=== PATIENT | female | born 1985 | race Caucasian/White ===

== ENCOUNTER 2017-04-29 13:46 | Emergency (ER) | payer OTHER, BC ==
[~2017-04-29] VITALS: Ht 162.6 cm; Wt 65.8 kg
[~2017-04-29 13:46] MED LIST: ATR20T PO; ATRV10T PO; DOCU100C37 PO; FAMO20TA3 PO; HUMALOG R; HYDR-3812 PO; HYDR25CA5 PO; IBUP-1773 PO; INSHRV SC; INSU100C SQ; INSU100V5 SQ; METR500T PO; NAPR-243 PO; OMG1KC PO; ONDA-42 SL; PAMI30VI8 SQ; PNV91TAB3 PO; QUIN10TA PO; SENN1TAB PO; SIMV40TA4 PO; TRAM50TA2 PO; TRM50T PO
[2017-04-29] MEDS ORDERED: KETOROLAC 30 MG/ML VIAL ONE (14:05)
[2017-04-29] MEDS ORDERED: ONDANSETRON 4 MG/2 ML (SDV) Z0FRAN ONE (14:05)
[2017-04-29] MEDS ORDERED: NS IV 1000 ML 1,000 ML ONE (14:05)
[2017-04-29 14:10] LABS: BASOPHILS % (AUTO) 0 % (0-10); EOSINOPHILS % (AUTO) 0 % (0-10); LYMPHOCYTES # (AUTO) 1.4 X 10^3 (1.0-4.0); LYMPHOCYTES % (AUTO) 7 % (12-44); MEAN CORPUSCULAR HEMOGLOBIN 27 PG (25-34); MEAN CORPUSCULAR HGB CONC 34 G/DL (32-36); MEAN CORPUSCULAR VOLUME 80 FL (80-99); MEAN PLATELET VOLUME 9.6 FL (7.4-10.4); MONOCYTES # (AUTO) 1.3 X 10^3 (0.0-1.0); MONOCYTES % (AUTO) 6 % (0-12); NEUTROPHILS # (AUTO) 17.6 X 10^3 (1.8-7.8); NEUTROPHILS % (AUTO) 87 % (42-75); PLATELET COUNT 438 10^3/uL (130-400); RED BLOOD COUNT 4.43 10^6/uL (4.35-5.85); RED CELL DISTRIBUTION WIDTH 15.4 % (10.0-14.5); WHITE BLOOD COUNT 20.3 10^3/uL (4.3-11.0)
--- NOTE | 2017-04-29 14:14 | ED GI ---
General Stated Complaint: TYPE 1 DIABETIC, BODY ACHES, VOMITING History of Present Illness Time Seen By Provider: 13:55 Initial Comments 32-year-old female reports nausea and vomiting since last evening. She also has arthralgias and myalgias. She is a type I diabetic and uses an insulin pump. Her blood sugar prior to arrival was 285, her pump administered 3 units of NovoLog regular. She did receive a flu shot this year. She denies any household family members having similar symptoms. She has had very poor intake today secondary to the nausea and vomiting. Her last episode of vomiting was 0900 today. She denies specific abdominal pain, generalized from vomiting. She took a hydrocodone yesterday evening for the body aches. She's had no analgesics today. Timing/Duration: 12-24 Hours Severity/Quality: Mild Location: Generalized Abdomen Radiation: No Radiation Modifying Factors: Improves With Resting Associated Symptoms: Fever/Chills, Fatigue, Nausea/Vomiting, Weakness Allergies and Home Medications Allergies Coded Allergies: No Known Drug Allergies (Unverified , 01/17/10) Home Medications Insulin Lispro 100 Unit/1 Ml Cartridge, SQ per insulin pump, (Reported) Ondansetron 8 Mg Tab.rapdis, 8 MG PO Q8H, #6 Ref 0 Prescribed by: KENDRICK MOTTA on 04/29/17 1638 Review of Systems Constitutional: no symptoms reported, see HPI Respiratory: No Symptoms Reported, See HPI, Denies Cough, Denies Shortness of Air Gastrointestinal: See HPI, Nausea, Poor Appetite, Poor Fluid Intake, Vomiting Genitourinary: No Symptoms Reported, See HPI Musculoskeletal: see HPI, joint pain, muscle pain All Other Systems Reviewed Negative Unless Noted: Yes Past Kffvkqn-Kkvwmf-Pwbegx Hx Patient Social History Recent Foreign Travel: No Contact w/Someone Who Travel: No Recent Hopitalizations: No Immunizations Up To Date Tetanus Booster (TDap): More than 5yrs Date of Pneumonia Vaccine: Feb 12, 2010 Seasonal Allergies Seasonal Allergies: No Reproductive System : No (IUD) Hx Reproductive Disorders: 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 Endocrine History of Endocrine Disorders: Yes Endocrine Disorders: Diabetes, Insulin dep Reviewed Nursing Assessment Reviewed/Agree w Nursing PMH: Yes Family Medical History Significant Family History: No Pertinent Family Hx Family Medial History: Completed stroke grandparent Hypertension 19 MOTHER Physical Exam Vital Signs VS - Last 72 Hours, by Label 04/29/17 04/29/17 13:55 16:48 Temp 98.9 98.1 Pulse 106 88 Resp 28 24 B/P (MAP) 122/56 (78) Pulse Ox 99 99 Capillary Refill : General Appearance: WD/WN, no apparent distress HEENT: PERRL/EOMI, normal ENT inspection, TMs normal, pharynx normal, other ( oral mucosa pale and dry) Neck: non-tender, full range of motion Respiratory: chest non-tender, lungs clear, normal breath sounds Cardiovascular: normal peripheral pulses, regular rate, rhythm Gastrointestinal: normal bowel sounds, soft, No guarding, No rebound, No tenderness, other (negative Macdonald, McBurney's, psoas) Extremities: normal range of motion, non-tender, normal inspection, no pedal edema, normal capillary refill Back: normal inspection, no CVA tenderness, no vertebral tenderness Neurologic/Psychiatric: no motor/sensory deficits, alert, normal mood/affect, oriented x 3 Skin: normal color, warm/dry Lymphatic: no adenopathy Focused Exam Evaluation Lactate Level Laboratory Tests 04/29/17 14:35: Lactic Acid Level 1.33 Lactic Acid Level Laboratory Tests Test 04/29/17 14:35 Lactic Acid Level 1.33 MMOL/L (0.50-2.00) Progress/Results/Core Measures Results/Orders Lab Results Laboratory Tests Test 04/29/17 14:05 04/29/17 14:22 04/29/17 14:35 04/29/17 15:00 Range/Units White Blood Count 20.3 H 4.3-11.0 10^3/uL Red Blood Count 4.43 4.35-5.85 10^6/uL Hemoglobin 11.9 11.5-16.0 G/DL Hematocrit 36 35-52 % Mean Corpuscular Volume 80 80-99 FL Mean Corpuscular Hemoglobin 27 25-34 PG Mean Corpuscular Hemoglobin Concent 34 32-36 G/DL Red Cell Distribution Width 15.4 H 10.0-14.5 % Platelet Count 438 H 130-400 10^3/uL Mean Platelet Volume 9.6 7.4-10.4 FL Neutrophils (%) (Auto) 87 H 42-75 % Lymphocytes (%) (Auto) 7 L 12-44 % Monocytes (%) (Auto) 6 0-12 % Eosinophils (%) (Auto) 0 0-10 % Basophils (%) (Auto) 0 0-10 % Neutrophils # (Auto) 17.6 H 1.8-7.8 X 10^3 Lymphocytes # (Auto) 1.4 1.0-4.0 X 10^3 Monocytes # (Auto) 1.3 H 0.0-1.0 X 10^3 Eosinophils # (Auto) 0.0 0.0-0.3 10^3/uL Basophils # (Auto) 0.0 0.0-0.1 10^3/uL Neutrophils % (Manual) 90 % Lymphocytes % (Manual) 9 % Monocytes % (Manual) 1 % Toxic Granulation 3+ Dohle Bodies SLIGHT Blood Morphology Comment NORMAL Sodium Level 135 135-145 MMOL/L Potassium Level 4.6 3.6-5.0 MMOL/L Chloride Level 102 98-107 MMOL/L Carbon Dioxide Level 12 L 21-32 MMOL/L Anion Gap 21 H 5-14 MMOL/L Blood Urea Nitrogen 21 H 7-18 MG/DL Creatinine 1.25 0.60-1.30 MG/DL Estimat Glomerular Filtration Rate 50 BUN/Creatinine Ratio 17 Glucose Level 415 *H 70-105 MG/DL Calcium Level 9.7 8.5-10.1 MG/DL Total Bilirubin 1.2 H 0.1-1.0 MG/DL Aspartate Amino Transf (AST/SGOT) 13 5-34 U/L Alanine Aminotransferase (ALT/SGPT) 15 0-55 U/L Alkaline Phosphatase 74 40-136 U/L C-Reactive Protein High Sensitivity 1.19 H 0.00-0.50 MG/DL Total Protein 8.0 6.4-8.2 GM/DL Albumin 4.7 H 3.2-4.5 GM/DL Glucometer 349 H 70-110 MG/DL Lactic Acid Level 1.33 0.50-2.00 MMOL/L Urine Color YELLOW Urine Clarity CLEAR Urine pH 5 5-9 Urine Specific [place] 1.025 H 1.016-1.022 Urine Protein 1+ H NEGATIVE Urine Glucose (UA) 4+ H NEGATIVE Urine Ketones 4+ H NEGATIVE Urine Nitrite NEGATIVE NEGATIVE Urine Bilirubin NEGATIVE NEGATIVE Urine Urobilinogen NORMAL NORMAL MG/DL Urine Leukocyte Esterase NEGATIVE NEGATIVE Urine RBC (Auto) 1+ H NEGATIVE Urine RBC 0-2 /HPF Urine WBC 0-2 /HPF Urine Squamous Epithelial Cells 10-25 H /HPF Urine Crystals NONE /LPF Urine Bacteria TRACE /HPF Urine Casts NONE /LPF Urine Mucus NEGATIVE /LPF Urine Yeast FEW H /HPF Urine Culture Indicated NO Urine Test NEGATIVE NEGATIVE Test 04/29/17 15:05 04/29/17 15:58 Range/Units Glucometer 332 H 281 H 70-110 MG/DL Micro Results Microbiology 04/29/17 Influenza Types A,B Antigen (JUANITA) - Final, Complete My Orders Orders - KENDRICK MOTTA Accucheck Stat ONCE (04/29/17 13:51) Cbc With Automated Diff (04/29/17 13:51) Comprehensive Metabolic Panel (04/29/17 13:51) Hs C Reactive Protein (04/29/17 13:51) Ua Culture If Indicated (04/29/17 13:51) Influenza A And B Antigens (04/29/17 13:51) Saline Lock/Iv-Start (04/29/17 13:51) Ondansetron Injection (Zofran Injectio (04/29/17 14:05) Ketorolac Injection (Toradol Injection) (04/29/17 14:05) Ns Iv 1000 Ml (Sodium Chloride 0.9%) (04/29/17 14:05) Manual Differential (04/29/17 14:05) Ketorolac Injection (Toradol Injection) (04/29/17 14:15) Blood Culture (04/29/17 14:31) Lactic Acid Analyzer (04/29/17 14:31) Insulin (Regular) Human (Humulin R (Per (04/29/17 14:29) Insulin (Regular) Human (Humulin R (Per (04/29/17 14:37) Insulin (Regular) Human (Humulin R (Per (04/29/17 14:39) Saline Lock/Iv-Start (04/29/17 14:52) Ns Iv 1000 Ml (Sodium Chloride 0.9%) (04/29/17 14:52) Accucheck Stat ONCE (04/29/17 15:01) Acetaminophen Tablet/Caplet (Tylenol T (04/29/17 15:01) Hcg,Qualitative Urine (04/29/17 15:07) Clear Liquid (04/29/17 Lunch) Ns Iv 1000 Ml (Sodium Chloride 0.9%) (04/29/17 16:00) Accucheck Stat ONCE (04/29/17 16:02) Medications Given in ED Current Medications Medications Dose Ordered Sig/Karl Route Start Time Stop Time Status Last Admin Dose Admin Insulin Human Regular 1 unit STK-MED ONCE .ROUTE 04/29/17 14:29 04/29/17 14:31 DC 04/29/17 14:35 1 UNIT Ketorolac Tromethamine 30 mg STK-MED ONCE .ROUTE 04/29/17 14:05 04/29/17 14:07 DC 04/29/17 14:13 30 MG Ondansetron HCl 4 mg STK-MED ONCE .ROUTE 04/29/17 14:05 04/29/17 14:07 DC 04/29/17 14:14 4 MG Sodium Chloride 1,000 ml @ 0 mls/hr Q0M ONCE IV 04/29/17 14:52 04/29/17 14:53 DC 04/29/17 15:00 1,000 MLS/HR Sodium Chloride 1,000 ml @ ud STK-MED ONCE .ROUTE 04/29/17 14:05 04/29/17 14:07 DC 04/29/17 14:13 1,000 MLS/HR Vital Signs/I&O Vital Sign - Last 12Hours 04/29/17 04/29/17 13:55 16:48 Temp 98.9 98.1 Pulse 106 88 Resp 28 24 B/P (MAP) 122/56 (78) Pulse Ox 99 99 Progress Note : Time: 13:55 Progress Note Initial evaluation completed, recommended labs, flu swab, normal saline 1 L IV, Zofran 4 mg IV, Toradol 30 mg IV. Will reevaluate. 1430 Glucose 415, Regular Insulin 5 units IV. Will recheck at 1500. 1500 Temp 100.4; WBC 20.3, lactic acid 1.33, C-reactive protein 1.19. Will administer 2nd liter of IV NS. UA obtained. Tylenol 650 mg by mouth. 1505 Accucheck 332, Regular Insulin 10 units IV 1530 patient reports to be feeling better, no nausea or vomiting. Patient reports she is feeling hungry. Third liter of IV fluid started, normal saline. We'll attempt chicken broth and Jell-O. Oral mucosa pink and moist. 1600 Accu-Chek 281. 1630 Temp 98.8, discussed discharge planning and reviewed return precautions. Patient will continue to monitor her glucose at home and adjust insulin demands as needed. All questions answered. Departure Impression Impression: Primary Impression: Nausea and vomiting Qualified Codes: G43.A1 - Cyclical vomiting, intractable Additional Impressions: Dehydration Hyperglycemia Insulin dependent diabetes mellitus Disposition: HOME, SELF-CARE Condition: Improved Departure-Patient Inst. Decision time for Depature: 16:30 Referrals: [facility] [place]) Primary Care Physician Patient Instructions: Dehydration, Adult (DC), Nausea and Vomiting, Adult (DC) Add. Discharge Instructions: Continue to take clear liquids for the next 4 hours, if no further nausea or vomiting may progress to bland diet. Continue to check glucose every 2-3 hours and adjust insulin as needed. Use Zofran for nausea or vomiting. Return to emergency department if symptoms are not improving, recurrent nausea and vomiting, dizziness or weakness from dehydration, fever greater than 101 not relieved with Tylenol or ibuprofen, or new problems. Follow-up with your primary care provider early next week. All discharge instructions reviewed with patient and/or family. Voiced understanding. Scripts Ondansetron (Zofran Odt) 8 Mg Tab.rapdis 8 MG PO Q8H, #6 TAB 0 Refills Prov: KENDRICK MOTTA 04/29/17 Copy Copies To 1: JANICE CHAKRABORTY MD, AMY ARNP Apr 29, 2017 14:14
[2017-04-29] MEDS ORDERED: KETOROLAC 30 MG/ML VIAL IVP STA (14:15)
[2017-04-29 14:27] LABS: ALBUMIN 4.7 GM/DL (3.2-4.5); BILIRUBIN,TOTAL 1.2 MG/DL (0.1-1.0); CALCIUM 9.7 MG/DL (8.5-10.1); CREATININE SERUM 1.25 MG/DL (0.60-1.30); LYMPHOCYTES % (MANUAL) 9 %; NEUTROPHILS % (MANUAL) 90 %; POTASSIUM 4.6 MMOL/L (3.6-5.0); hs C REACTIVE PROTEIN 1.19 MG/DL (0.00-0.50)
[2017-04-29] MEDS ORDERED: inSUlin (REGULAR) HUMAN 1 UNIT/0.01 ML (CHARGE PER UNIT) ONE (14:29)
[2017-04-29] MEDS ORDERED: inSUlin (REGULAR) HUMAN 1 UNIT/0.01 ML (CHARGE PER UNIT) IV STA ×2 (14:37→14:39)
[2017-04-29] MEDS ORDERED: NS IV 1000 ML 1,000 ML IV ONE (14:52)
[2017-04-29] MEDS ORDERED: ACETAMINOPHEN 325 MG TABLET/CAPLET (TYLENOL) PO STA (15:01)
[2017-04-29 15:11] LABS: BILIRUBIN,URINE NEGATIVE (NEGATIVE); KETONES,URINE 4+ (NEGATIVE); LEUKOCYTE ESTERASE ,URINE NEGATIVE (NEGATIVE); NITRITE,URINE NEGATIVE (NEGATIVE); PH,URINE 5 (5-9); PROTEIN,URINE 1+ (NEGATIVE); UROBILINOGEN,URINE NORMAL (NORMAL)
[2017-04-29 15:20] LABS: WBC,URINE 0-2 /HPF; YEAST,URINE FEW /HPF
[2017-04-29] MEDS ORDERED: NS IV 1000 ML 1,000 ML IV SCH (16:00)
[2017-04-29] MEDS ORDERED: ONDA8TAB9 PO (16:38)
[2017-04-29 16:48] VITALS: BP 122/56
== END 2017-04-29 16:48 | disposition home or self-care (01) ==
LOC: EDUNIT# 13:46 → ER 13:49
DX: R11.2 Nausea with vomiting, unspecified (principal); E86.0 Dehydration; E11.65 Type 2 diabetes mellitus with hyperglycemia; Z79.4 Long term (current) use of insulin; Z97.5 Presence of (intrauterine) contraceptive device
CPT/HCPCS: 36415; 80053; 81000; 82962; 83605; 84703; 85007; 85027; 86141; 87040; 87804

== ENCOUNTER 2019-07-02 05:50 | Emergency (ER) | payer BC ==
[~2019-07-02] VITALS: Ht 165 cm; Wt 68.6 kg
[~2019-07-02 05:50] MED LIST changes: +ACHD5005 PO; -HYDR-3812 PO; +ONDA8TAB9 PO; -TRAM50TA2 PO
[2019-07-02] MEDS ORDERED: NS IV 1000 ML 1,000 ML IV SCH (06:06)
[2019-07-02] MEDS ORDERED: ONDANSETRON 4 MG/2 ML (SDV) Z0FRAN IVP ONE (06:15)
--- NOTE | 2019-07-02 06:16 | ED GI ---
General Stated Complaint: COUGHING,VOMITING,BODY ACHE,POSS FEVER Source of Information: Patient Exam Limitations: No Limitations History of Present Illness Date Seen by Provider: Jul 02, 2019 Time Seen by Provider: 05:57 Initial Comments Patient arrives by private conveyance from home with chief complaint for the past 4 days she's had nausea vomiting diarrhea cough bodyaches fevers and chills. She thinks she has influenza. She is a type I diabetic and her fasting blood sugar this morning was 80. She has no other significant medical history. She has a history of times one. She has not seen anybody for this particular illness yet. No history of lung disease. No rash, headache, numbness. Allergies and Home Medications Allergies Coded Allergies: No Known Drug Allergies (Unverified , 01/17/10) Home Medications Insulin Lispro 100 Unit/1 Ml Cartridge, SQ per insulin pump, (Reported) Ondansetron 8 Mg Tab.rapdis, 8 MG PO Q8H Prescribed by: KENDRICK MOTTA on 04/29/17 1638 Ondansetron 8 Mg Tab.rapdis, 8 MG PO Q6H PRN for NAUSEA/VOMITING-1ST LINE Prescribed by: RODOLFO SYKES on 07/02/19 0819 Promethazine HCl 25 Mg Tablet, 25 MG PO Q6H PRN for NAUSEA/VOMITING-2ND LINE Prescribed by: RODOLFO SYKES on 07/02/19 0819 Patient Home Medication List Home Medication List Reviewed: Yes Review of Systems Review of Systems Constitutional: chills, fever, malaise EENTM: No Blurred Vision, No Double Vision Respiratory: Cough; Denies Shortness of Air, Denies Wheezing Cardiovascular: Denies Chest Pain, Denies Edema Gastrointestinal: Denies Abdomen Distended, Denies Abdominal Pain, Denies Constipated; Diarrhea, Nausea; Denies Poor Appetite; Vomiting Genitourinary: Denies Burning, Denies Discharge Musculoskeletal: No back pain, No joint pain Skin: No pruritus, No rash Psychiatric/Neurological: Denies Headache, Denies Numbness, Denies Paresthesia All Other Systems Reviewed Negative Unless Noted: Yes Past Pzrvicx-Sovxhn-Wfqmod Hx Patient Social History Alcohol Use: Denies Use Recreational Drug Use: No Smoking Status: Never a Smoker Recent Foreign Travel: No Contact w/Someone Who Travel: No Recent Hopitalizations: No Immunizations Up To Date Tetanus Booster (TDap): More than 5yrs Date of Pneumonia Vaccine: Feb 12, 2010 Date of Influenza Vaccine: Feb 12, 2017 Seasonal Allergies Seasonal Allergies: No Past Medical History Surgeries: Yes Section Respiratory: No Cardiac: No Neurological: Yes (2010 had a seizure once when blood sugar dropped quickly) 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 0.0oz. [id number]; 31.8 BMI Method:Stated General Appearance: WD/WN, mild distress HEENT: PERRL/EOMI, TMs normal, pharynx normal Neck: non-tender, supple, normal inspection Respiratory: lungs clear, normal breath sounds, no respiratory distress, no accessory muscle use Cardiovascular: normal peripheral pulses, regular rate, rhythm, no edema Peripheral Pulses: 2+ Radial Pulses (R), 2+ Radial Pulses (L) Gastrointestinal: normal bowel sounds, soft; No rebound; tenderness (mild, all 4 quadrants without mesenteric signs) Extremities: normal range of motion, non-tender, normal inspection, normal capillary refill Neurologic/Psychiatric: alert, oriented x 3 Skin: normal color, warm/dry Lymphatic: no adenopathy Progress/Results/Core Measures Results/Orders Lab Results Laboratory Tests Test 07/02/19 06:11 07/02/19 06:15 07/02/19 07:32 Range/Units Glucometer 130 H 70-110 MG/DL White Blood Count 15.5 H 4.3-11.0 10^3/uL Red Blood Count 4.36 4.35-5.85 10^6/uL Hemoglobin 11.9 11.5-16.0 G/DL Hematocrit 36 35-52 % Mean Corpuscular Volume 82 80-99 FL Mean Corpuscular Hemoglobin 27 25-34 PG Mean Corpuscular Hemoglobin Concent 33 32-36 G/DL Red Cell Distribution Width 14.8 H 10.0-14.5 % Platelet Count 280 130-400 10^3/uL Mean Platelet Volume 9.5 7.4-10.4 FL Neutrophils (%) (Auto) 83 H 42-75 % Lymphocytes (%) (Auto) 10 L 12-44 % Monocytes (%) (Auto) 7 0-12 % Eosinophils (%) (Auto) 0 0-10 % Basophils (%) (Auto) 0 0-10 % Neutrophils # (Auto) 12.9 H 1.8-7.8 X 10^3 Lymphocytes # (Auto) 1.5 1.0-4.0 X 10^3 Monocytes # (Auto) 1.1 H 0.0-1.0 X 10^3 Eosinophils # (Auto) 0.0 0.0-0.3 10^3/uL Basophils # (Auto) 0.0 0.0-0.1 10^3/uL Neutrophils % (Manual) 79 % Lymphocytes % (Manual) 9 % Monocytes % (Manual) 6 % Eosinophils % (Manual) 1 % Band Neutrophils 5 % Polychromasia SLIGHT Sodium Level 139 135-145 MMOL/L Potassium Level 3.1 L 3.6-5.0 MMOL/L Chloride Level 103 98-107 MMOL/L Carbon Dioxide Level 22 21-32 MMOL/L Anion Gap 14 5-14 MMOL/L Blood Urea Nitrogen 14 7-18 MG/DL Creatinine 0.84 0.60-1.30 MG/DL Estimat Glomerular Filtration Rate > 60 BUN/Creatinine Ratio 17 Glucose Level 137 H 70-105 MG/DL Calcium Level 9.0 8.5-10.1 MG/DL Corrected Calcium 8.8 8.5-10.1 MG/DL Total Bilirubin 0.4 0.1-1.0 MG/DL Aspartate Amino Transf (AST/SGOT) 18 5-34 U/L Alanine Aminotransferase (ALT/SGPT) 15 0-55 U/L Alkaline Phosphatase 55 40-136 U/L Total Protein 7.2 6.4-8.2 GM/DL Albumin 4.3 3.2-4.5 GM/DL Serum Test, Qualitative NEGATIVE NEGATIVE Urine Color DARK YELLOW Urine Clarity SL CLOUDY Urine pH 6.0 5-9 Urine Specific [place] >=1.030 1.016-1.022 Urine Protein 1+ H NEGATIVE Urine Glucose (UA) NEGATIVE NEGATIVE Urine Ketones 3+ H NEGATIVE Urine Nitrite NEGATIVE NEGATIVE Urine Bilirubin 1+ H NEGATIVE Urine Urobilinogen 0.2 < = 1.0 MG/DL Urine Leukocyte Esterase 1+ H NEGATIVE Urine RBC (Auto) 2+ H NEGATIVE Urine RBC 5-10 H /HPF Urine WBC 2-5 /HPF Urine Squamous Epithelial Cells 10-25 H /HPF Urine Crystals NONE /LPF Urine Bacteria FEW H /HPF Urine Casts NONE /LPF Urine Mucus SMALL H /LPF Urine Culture Indicated YES Micro Results Microbiology 07/02/19 Influenza Types A,B Antigen (JUANITA) - Final, Complete My Orders Orders - RODOLFO SYKES Influenza A And B Antigens (07/02/19 05:54) Ua Culture If Indicated (07/02/19 06:06) Accucheck Stat ONCE (07/02/19 06:06) Cbc With Automated Diff (07/02/19 06:06) Comprehensive Metabolic Panel (07/02/19 06:06) Ed Iv/Invasive Line Start (07/02/19 06:06) Ns Iv 1000 Ml (Sodium Chloride 0.9%) (07/02/19 06:06) Ondansetron Injection (Zofran Injectio (07/02/19 06:15) Manual Differential (07/02/19 06:15) Promethazine Injection (Phenergan Injec (07/02/19 06:45) Hcg,Qualitative Serum (07/02/19 06:36) Urine Culture (07/02/19 07:32) Medications Given in ED Current Medications Medications Dose Ordered Sig/Karl Route Start Time Stop Time Status Last Admin Dose Admin Ondansetron HCl 8 mg ONCE ONCE IVP 07/02/19 06:15 07/02/19 06:16 DC 07/02/19 06:24 8 MG Promethazine HCl 25 mg ONCE ONCE IVP 07/02/19 06:45 07/02/19 06:46 DC 07/02/19 06:42 25 MG Vital Signs/I&O 07/02/19 07/02/19 06:03 06:03 Temp 37.6 Pulse 81 Resp 20 B/P (MAP) 129/98 (108) O2 Delivery Room Air Room Air Progress Progress Note #1: Time: 06:18 Progress Note Influenza swab. Accu-Chek was 130. Plan on obtaining some labs and urine given her history of type 1 diabetes. Tylenol and/or Toradol for her borderline fever and body aches associated her nausea under control and CMP. 1 L of saline to start. Progress Note #2: Time: 07:00 Progress Note After Zofran and a dose of Phenergan was given. Her nausea is under control so we gave her some ice chips and will attempt to get a urinalysis to rule out UTI. Viral gastroenteritis is most likely. She has a benign abdominal exam on reexamination. Nontender abdomen without mesenteric signs. Aseptic vital signs. Her potassium is a little low after all her vomiting as expected. We'll going to encourage her to fix it with her diet. Her nausea under control. Her marginal elevated white count is also expected nausea and vomiting. Departure Impression Primary Impression: Gastroenteritis and colitis, viral Disposition: HOME, SELF-CARE Condition: Stable Departure-Patient Inst. Decision time for Depature: 08:17 Referrals: SAI MARIE MD (PCP/Family) Primary Care Physician Patient Instructions: Viral Gastroenteritis, Adult (DC) Add. Discharge Instructions: Drink plenty of fluids. Sports drinks are recommended. Zofran 1 tablet every 6 hours as needed for nausea or vomiting. Phenergan 1 tablet every 6 hours as needed for nausea or vomiting not corrected by Zofran. Tylenol 1000 mg every 8 hours as needed for pain or fever. Ibuprofen 800 mg every 8 hours as needed for pain or fever. If your symptoms persist for more than 5-7 days or you're having intractable pain or nausea then you need to return to the nearest ER. Otherwise follow-up w la Marie as necessary. Scripts Promethazine HCl (Promethazine Tablet) 25 Mg Tablet 25 MG PO Q6H PRN for NAUSEA/VOMITING-2ND LINE, #10 TAB 0 Refills Prov: RODOLFO SYKES 07/02/19 Work/School Note: Work Release Form Date Seen in the Emergency Department: Jul 02, 2019 Return to Work: Jul 03, 2019 Restrictions: No Restrictions, Return-No Fever (24hrs) RODOLFO SYKES Jul 02, 2019 06:16
[2019-07-02 06:27] LABS: BASOPHILS % (AUTO) 0 % (0-10); EOSINOPHILS % (AUTO) 0 % (0-10); HEMATOCRIT 36 % (35-52); HEMOGLOBIN 11.9 G/DL (11.5-16.0); LYMPHOCYTES # (AUTO) 1.5 X 10^3 (1.0-4.0); LYMPHOCYTES % (AUTO) 10 % (12-44); MEAN CORPUSCULAR HEMOGLOBIN 27 PG (25-34); MEAN CORPUSCULAR HGB CONC 33 G/DL (32-36); MEAN CORPUSCULAR VOLUME 82 FL (80-99); MEAN PLATELET VOLUME 9.5 FL (7.4-10.4); MONOCYTES # (AUTO) 1.1 X 10^3 (0.0-1.0); MONOCYTES % (AUTO) 7 % (0-12); NEUTROPHILS # (AUTO) 12.9 X 10^3 (1.8-7.8); NEUTROPHILS % (AUTO) 83 % (42-75); PLATELET COUNT 280 10^3/uL (130-400); RED CELL DISTRIBUTION WIDTH 14.8 % (10.0-14.5); WHITE BLOOD COUNT 15.5 10^3/uL (4.3-11.0)
[2019-07-02 06:44] LABS: ALANINE AMINOTRANSFERASE 15 U/L (0-55); ALBUMIN 4.3 GM/DL (3.2-4.5); ALKALINE PHOSPHATASE 55 U/L (40-136); BILIRUBIN,TOTAL 0.4 MG/DL (0.1-1.0); BUN/CREATININE RATIO 17; CARBON DIOXIDE 22 MMOL/L (21-32); CHLORIDE 103 MMOL/L (98-107); CREATININE SERUM 0.84 MG/DL (0.60-1.30); GFR ESTIMATED > 60; GLUCOSE 137 MG/DL (70-105); POTASSIUM 3.1 MMOL/L (3.6-5.0); SODIUM 139 MMOL/L (135-145); TOTAL PROTEIN 7.2 GM/DL (6.4-8.2)
[2019-07-02] MEDS ORDERED: PROMETHAZINE INJ 25 MG/ML (PHENERGAN) AMP IVP ONE (06:45)
[2019-07-02 07:40] LABS: BILIRUBIN,URINE 1+ (NEGATIVE); CLARITY,URINE SL CLOUDY; COLOR,URINE DARK YELLOW; GLUCOSE, URINE (UA) NEGATIVE (NEGATIVE); KETONES,URINE 3+ (NEGATIVE); LEUKOCYTE ESTERASE ,URINE 1+ (NEGATIVE); NITRITE,URINE NEGATIVE (NEGATIVE); PROTEIN,URINE 1+ (NEGATIVE)
[2019-07-02 07:53] LABS: BAND NEUTROPHILS 5 %; EOSINOPHILS % (MANUAL) 1 %; LYMPHOCYTES % (MANUAL) 9 %; MONOCYTES % (MANUAL) 6 %; NEUTROPHILS % (MANUAL) 79 %; POLYCHROMASIA SLIGHT
[2019-07-02 08:01] LABS: BACTERIA,URINE FEW /HPF
[2019-07-02] MEDS ORDERED: PROM25TA14 PO (08:19)
[2019-07-02] MEDS ORDERED: ONDA8TAB13 PO (08:19)
[2019-07-02 08:31] VITALS: BP 111/62
== END 2019-07-02 08:31 | disposition home or self-care (01) ==
LOC: EDUNIT# 05:50 → ER 05:53
DX: A08.4 Viral intestinal infection, unspecified (principal); E11.9 Type 2 diabetes mellitus without complications; Z82.49 Family history of ischemic heart disease and other diseases of the circulatory system
CPT/HCPCS: 36415; 80053; 81000; 82962; 84703; 85007; 85027; 87088; 87804

== ENCOUNTER → 2019-09-26 | Outpatient (CLI) | payer BC ==
[~2019-09-26] MED LIST changes: +ONDA8TAB13 PO; +PROM25TA14 PO
[2019-09-26 11:13] LABS: BASOPHILS % (AUTO) 1 % (0-10); EOSINOPHILS # (AUTO) 0.2 10^3/uL (0.0-0.3); EOSINOPHILS % (AUTO) 3 % (0-10); HEMATOCRIT 39 % (35-52); HEMOGLOBIN 12.8 G/DL (11.5-16.0); LYMPHOCYTES # (AUTO) 1.7 X 10^3 (1.0-4.0); LYMPHOCYTES % (AUTO) 29 % (12-44); MEAN CORPUSCULAR HEMOGLOBIN 28 PG (25-34); MEAN CORPUSCULAR HGB CONC 33 G/DL (32-36); MEAN CORPUSCULAR VOLUME 85 FL (80-99); MEAN PLATELET VOLUME 9.8 FL (7.4-10.4); MONOCYTES # (AUTO) 0.5 X 10^3 (0.0-1.0); MONOCYTES % (AUTO) 8 % (0-12); NEUTROPHILS # (AUTO) 3.4 X 10^3 (1.8-7.8); NEUTROPHILS % (AUTO) 59 % (42-75); PLATELET COUNT 329 10^3/uL (130-400); RED CELL DISTRIBUTION WIDTH 15.4 % (10.0-14.5); WHITE BLOOD COUNT 5.7 10^3/uL (4.3-11.0)
[2019-09-26 11:37] LABS: ALANINE AMINOTRANSFERASE 7 U/L (0-55); ALBUMIN 4.2 GM/DL (3.2-4.5); ALKALINE PHOSPHATASE 54 U/L (40-136); BILIRUBIN,TOTAL 0.4 MG/DL (0.1-1.0); BUN/CREATININE RATIO 18; CALCIUM 8.8 MG/DL (8.5-10.1); CARBON DIOXIDE 26 MMOL/L (21-32); CHLORIDE 104 MMOL/L (98-107); CREATININE SERUM 0.92 MG/DL (0.60-1.30); GFR ESTIMATED > 60; GLUCOSE 228 MG/DL (70-105); POTASSIUM 3.9 MMOL/L (3.6-5.0); SODIUM 137 MMOL/L (135-145)
== END ==
LOC: LAB 10:55
PROVIDERS: ATTEND Nurse Practitioner Family
DX: E10.9 Type 1 diabetes mellitus without complications (principal); F41.1 Generalized anxiety disorder; F33.0 Major depressive disorder, recurrent, mild
CPT/HCPCS: 36415; 80053; 83036; 84443; 85025

== ENCOUNTER → 2019-11-14 | Outpatient (CLI) | payer BC | LOC: LABNPT 09:33 | PROVIDERS: ATTEND Family Medicine | DX: Z20.828 Contact with and (suspected) exposure to other viral communicable diseases (principal) | CPT/HCPCS: 87635 ==

== ENCOUNTER → 2021-08-02 | Outpatient (CLI) | payer BC ==
--- NOTE | 2021-08-02 09:38 | Diagnostic Imaging Report ---
PROCEDURE: US Gallbladder. TECHNIQUE: Multiple real-time grayscale images were obtained over the right upper quadrant in various projections. INDICATION: Right upper quadrant pain. Liver is upper limits of normal in size at 17 cm. There is some mildly increased echogenicity of the liver suggestive of hepatic steatosis. Portal vein is patent and shows normal direction of flow. Gallbladder is without stones or sludge. No wall thickening or biliary duct dilatation is seen. Pancreas unremarkable. Aorta is nonaneurysmal. IVC is patent. Right kidney is without calculi or hydronephrosis. There is no ascites. IMPRESSION: 1. Hepatic steatosis. 2. Otherwise unremarkable gallbladder ultrasound. There is no evidence of cholelithiasis or acute cholecystitis. Dictated by: Dictated on workstation # [id number]
== END ==
LOC: RAD 08:15
PROVIDERS: ATTEND Nurse Practitioner Family
DX: K76.0 Fatty (change of) liver, not elsewhere classified (principal)
CPT/HCPCS: 76705

== ENCOUNTER 2021-11-16 16:52 | Emergency (ER) | payer BC ==
[~2021-11-16] VITALS: Ht 165 cm; Wt 65.7 kg
[2021-11-16] MEDS ORDERED: ONDANSETRON 4 MG/2 ML (SDV) Z0FRAN IVP ONE (18:00)
[2021-11-16] MEDS ORDERED: NS IV 1000 ML 1,000 ML IV SCH ×2 (18:00→19:00)
[2021-11-16 18:07] LABS: BASOPHILS # (AUTO) 0.1 10^3/uL (0.0-0.1); BASOPHILS % (AUTO) 0 % (0-10); EOSINOPHILS % (AUTO) 0 % (0-10); HEMATOCRIT 42 % (35-52); HEMOGLOBIN 14.3 g/dL (11.5-16.0); LYMPHOCYTES # (AUTO) 0.7 10^3/uL (1.0-4.0); LYMPHOCYTES % (AUTO) 3 % (12-44); MEAN CORPUSCULAR HEMOGLOBIN 29 pg (25-34); MEAN CORPUSCULAR HGB CONC 34 g/dL (32-36); MEAN CORPUSCULAR VOLUME 87 fL (80-99); MEAN PLATELET VOLUME 9.4 fL (9.0-12.2); MONOCYTES # (AUTO) 1.4 10^3/uL (0.0-1.0); MONOCYTES % (AUTO) 7 % (0-12); NEUTROPHILS # (AUTO) 17.7 10^3/uL (1.8-7.8); NEUTROPHILS % (AUTO) 89 % (42-75); PLATELET COUNT 417 10^3/uL (130-400); WHITE BLOOD COUNT 19.9 10^3/uL (4.3-11.0)
--- NOTE | 2021-11-16 18:10 | ED GI ---
General Chief Complaint: Abdominal/GI Problems Stated Complaint: POSS DKA Nursing Triage Note: PT AMB TO RM 4 A/O X4. PT STATED THAT HER BLOOD SUGAR WAS IN THE 200s THIS MORNING AND THAT SHE STARTED VOMITING THIS MORNING AT 0800. CALL LIGHT AND BED SET IN LOWEST POSITION. Source of Information: Patient, Spouse History of Present Illness Date Seen by Provider: Nov 16, 2021 Time Seen by Provider: 17:58 Initial Comments PT ARRIVED VIA POV FROM HOME, PRIOR TO MY ARRIVAL PT IS TYPE 1 DIABETIC, WITH INSULIN PUMP PT STATES SHE HAS HAD NAUSEA/VOMITING/DIARRHEA ALL DAY TODAY, SINCE THIS MORNING BLOOD SUGAR WAS UP TO 317 THIS AFTERNOON, AND HAD A BOLUS OF INSULIN--STATES HER PUMP IS ON A SLIDING SCALE, DOES NOT REMEMBER WHAT HER DOES WAS AT THAT TIME HAS VOMITED/HAD DRY HEAVES TOO MANY TIMES TO COUNT-CAN'T KEEP ANYTHING DOWN DOES NOT KNOW HOW MANY EPISODES OF DIARRHEA SHE HAS HAD ABDOMEN IS SORE FROM VOMITING/RETCHING, BUT NOT ACTUALLY HAVING ANY ABDOMINAL PAIN DOES NOT RECALL WHEN SHE LAST VOIDED DOES NOT KNOW IF SHE HAS HAD FEVER OR NOT. BEEN AT WORK ALL DAY, AND WHEN HE GOT HOME THIS EVENING, HE BROUGHT HER HERE. LMP--UNKNOWN, HAS MIRENA IUD IN PLACE AND DOES NOT HAVE PERIODS. PT FELT FINE YESTERDAY ( November)--WAS OUTSIDE THE ENTIRE DAY AND ALL EVENING YESTERDAY PT HAS HAD MULTIPLE EPISODES OF DKA IN THE PAST, BUT NOT RECENTLY PER HISTORY, PT HAS BEEN EXTREMELY NON-COMPLIANT IN ALL ASPECTS OF CARE HOWEVER, PT HAS NOT BEEN TO ER SINCE 2019. DOES USE MARIJUANA ON REGULAR BASIS PT HAS HAD COVID-19 VACCINE X 3. PCP: DR. FLORES Allergies and Home Medications Allergies Coded Allergies: No Known Drug Allergies (Unverified , 01/17/10) Patient Home Medication List Insulin Lispro (Humalog) 100 Unit/1 Ml Cartridge, SQ per insulin pump, (Reported) Entered as Reported by: RACHEL NOE on 01/28/16 1004 Metoclopramide HCl (Reglan) 10 Mg Tablet, 10 MG PO Q6H Prescribed by: KALINA CORMIER on 11/16/211946 Ondansetron (Zofran Odt) 8 Mg Tab.rapdis, 8 MG PO Q8H Prescribed by: KENDRICK MOTTA on 04/29/17 1638 Ondansetron (Ondansetron Odt) 8 Mg Tab.rapdis, 8 MG PO Q6H PRN for NAUSEA/VOMITING-1ST LINE Prescribed by: RODOLFO SYKES on 07/02/19 08 Ondansetron (Ondansetron Odt) 8 Mg Tab.rapdis, 8 MG PO Q6H Prescribed by: KALINA CORMIER on 11/16/211946 Promethazine HCl (Promethazine Tablet) 25 Mg Tablet, 25 MG PO Q6H PRN for NAUSEA/VOMITING-2ND LINE Prescribed by: RODOLFO SYKES on 07/02/19 08 Review of Systems Review of Systems Constitutional: see HPI Respiratory: No Symptoms Reported Cardiovascular: No Symptoms Reported Gastrointestinal: See HPI Genitourinary: See HPI Musculoskeletal: no symptoms reported Skin: no symptoms reported Psychiatric/Neurological: Anxiety Endocrine: See HPI Hematologic/Lymphatic: No Symptoms Reported Past Wusjguc-Qbwniy-Skopzs Hx Patient Social History Tobacco Use?: No Substance use?: Yes Substance type: Marijuana Substance frequency: Rarely Alcohol Use?: No Pt feels they are or have been: No Immunizations Up To Date Tetanus Booster (TDap): More than 5yrs Influenza Vaccine Up-to-Date: No; Not Current Seasonal Allergies Seasonal Allergies: No Past Medical History Surgeries: Yes Section Respiratory: No Cardiac: Yes High Cholesterol Neurological: Yes (2010 had a seizure once when blood sugar dropped quickly) Reproductive Disorders: No ELECTRICAL SYSTEMS ENGINEER History: IUD Gastrointestinal: No Musculoskeletal: No Endocrine: Yes (TYPE 1 DIABETES, DX 2001. MULT EPISODES OF DKA. INSULIN PUMP IN PLACE) Diabetes, Insulin dep Cancer: No Psychosocial: No Integumentary: No Blood Disorders: No Family Medical History Completed stroke grandparent Hypertension 19 MOTHER No Pertinent Family Hx Physical Exam Vital Signs Vital Signs - First Documented 11/16/21 17:03 Temp 36.4 Pulse 73 Resp 20 B/P (MAP) 146/89 (108) Pulse Ox 100 O2 Delivery Room Air Capillary Refill : Less Than 3 Seconds Height/Weight/BMI Height: 5'4.00" Weight: 145lbs. 0.0oz. [id number]; 24.00 BMI Method:Stated General Appearance: WD/WN, other (PT VERY DRAMATIC, WITH HARSH FORCED RETCHING. CONSTANT MOVEMENTS OF ENTIRE BODY, THRASHING ALL OVER. 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, no motor/sensory deficits, alert, oriented x 3, other (ANXIOUS) Skin: normal color, warm/dry Focused Exam Lactate Level 11/16/21 18:28: Lactic Acid Level 3.47*H Lactic Acid Level Laboratory Tests Test 11/16/21 18:28 Lactic Acid Level 3.47 MMOL/L (0.50-2.00) *H Progress/Results/Core Measures Results/Orders Lab Results Laboratory Tests Test 11/16/21 17:16 11/16/21 17:56 11/16/21 18:20 11/16/21 18:28 Range/Units Glucometer 270 H 70-110 MG/DL White Blood Count 19.9 H 4.3-11.0 10^3/uL Red Blood Count 4.89 3.80-5.11 10^6/uL Hemoglobin 14.3 11.5-16.0 g/dL Hematocrit 42 35-52 % Mean Corpuscular Volume 87 80-99 fL Mean Corpuscular Hemoglobin 29 25-34 pg Mean Corpuscular Hemoglobin Concent 34 32-36 g/dL Red Cell Distribution Width 13.6 10.0-14.5 % Platelet Count 417 H 130-400 10^3/uL Mean Platelet Volume 9.4 9.0-12.2 fL Immature Granulocyte % (Auto) 0 % Neutrophils (%) (Auto) 89 H 42-75 % Lymphocytes (%) (Auto) 3 L 12-44 % Monocytes (%) (Auto) 7 0-12 % Eosinophils (%) (Auto) 0 0-10 % Basophils (%) (Auto) 0 0-10 % Neutrophils # (Auto) 17.7 H 1.8-7.8 10^3/uL Lymphocytes # (Auto) 0.7 L 1.0-4.0 10^3/uL Monocytes # (Auto) 1.4 H 0.0-1.0 10^3/uL Eosinophils # (Auto) 0.0 0.0-0.3 10^3/uL Basophils # (Auto) 0.1 0.0-0.1 10^3/uL Immature Granulocyte # (Auto) 0.1 0.0-0.1 10^3/uL Neutrophils % (Manual) 88 % Lymphocytes % (Manual) 2 % Monocytes % (Manual) 10 % Blood Morphology Comment NORMAL Sodium Level 138 135-145 MMOL/L Potassium Level 3.4 L 3.6-5.0 MMOL/L Chloride Level 103 98-107 MMOL/L Carbon Dioxide Level 22 21-32 MMOL/L Anion Gap 13 5-14 MMOL/L Blood Urea Nitrogen 18 7-18 MG/DL Creatinine 0.89 0.60-1.30 MG/DL Estimat Glomerular Filtration Rate 86 BUN/Creatinine Ratio 20 Glucose Level 263 H 70-105 MG/DL Calcium Level 9.6 8.5-10.1 MG/DL Corrected Calcium 8.5-10.1 MG/DL Magnesium Level 1.6 1.6-2.4 MG/DL Total Bilirubin 1.4 H 0.1-1.0 MG/DL Aspartate Amino Transf (AST/SGOT) 18 5-34 U/L Alanine Aminotransferase (ALT/SGPT) 20 0-55 U/L Alkaline Phosphatase 57 40-136 U/L C-Reactive Protein High Sensitivity 0.81 H 0.00-0.50 MG/DL Total Protein 7.7 6.4-8.2 GM/DL Albumin 4.8 H 3.2-4.5 GM/DL Amylase Level 60 25-125 U/L Lipase 14 8-78 U/L Beta-Hydroxybutyrate (Chem panel) 0.25 0.00-0.27 MMOL/L Procalcitonin 0.31 H <0.10 NG/ML Influenza Type A (RT-PCR) Not Detected Not Detecte Influenza Type B (RT-PCR) Not Detected Not Detecte SARS-CoV-2 RNA (RT-PCR) Not Detected Not Detecte Lactic Acid Level 3.47 *H 0.50-2.00 MMOL/L Test 11/16/21 19:20 Range/Units Urine Color YELLOW Urine Clarity CLEAR Urine pH 6.5 5-9 Urine Specific [place] 1.020 1.016-1.022 Urine Protein TRACE H NEGATIVE Urine Glucose (UA) 3+ H NEGATIVE Urine Ketones 2+ H NEGATIVE Urine Nitrite NEGATIVE NEGATIVE Urine Bilirubin NEGATIVE NEGATIVE Urine Urobilinogen 0.2 < = 1.0 MG/DL Urine Leukocyte Esterase NEGATIVE NEGATIVE Urine RBC (Auto) TRACE-I H NEGATIVE Urine RBC 0-2 /HPF Urine WBC NONE /HPF Urine Squamous Epithelial Cells 0-2 /HPF Urine Renal Epithelial Cells NONE /HPF Urine Crystals NONE /LPF Urine Bacteria NEGATIVE /HPF Urine Casts NONE /LPF Urine Mucus MODERATE H /LPF Urine Culture Indicated NO Urine Opiates Screen NEGATIVE NEGATIVE Urine Oxycodone Screen NEGATIVE NEGATIVE Urine Methadone Screen NEGATIVE NEGATIVE Urine Propoxyphene Screen NEGATIVE NEGATIVE Urine Barbiturates Screen NEGATIVE NEGATIVE Ur Tricyclic Antidepressants Screen NEGATIVE NEGATIVE Urine Phencyclidine Screen NEGATIVE NEGATIVE Urine Amphetamines Screen NEGATIVE NEGATIVE Urine Methamphetamines Screen NEGATIVE NEGATIVE Urine Benzodiazepines Screen POSITIVE H NEGATIVE Urine Cocaine Screen NEGATIVE NEGATIVE Urine Cannabinoids Screen POSITIVE H NEGATIVE My Orders Orders - KALINA CORMIER DO Ed Iv/Invasive Line Start (11/16/21 17:59) Ns Iv 1000 Ml (Sodium Chloride 0.9%) (11/16/21 18:00) Ondansetron Injection (Zofran Injectio (11/16/21 18:00) Procalcitonin (Pct) (11/16/21 18:03) Covid 19 Inhouse Test (11/16/21 18:03) Influenza A And B By Pcr (11/16/21 18:03) Isolation Central Supply Req (11/16/21 18:03) Drug Screen Stat (Urine) (11/16/21 18:03) Lactic Acid Analyzer (11/16/21 18:03) Magnesium (11/16/21 18:03) Amylase (11/16/21 18:03) Metoclopramide Injection (Reglan Injecti (11/16/21 18:15) Ed Iv/Invasive Line Start (11/16/21 18:47) Ns Iv 1000 Ml (Sodium Chloride 0.9%) (11/16/21 19:00) Medications Given in ED Current Medications Medications Dose Ordered Sig/Karl Route Start Time Stop Time Status Last Admin Dose Admin Metoclopramide HCl 10 mg ONCE ONCE IVP 11/16/21 18:15 11/16/21 18:16 DC 11/16/21 18:23 10 MG Ondansetron HCl 8 mg ONCE ONCE IVP 11/16/21 18:00 11/16/21 18:01 DC 11/16/21 18:23 8 MG Vital Signs/I&O 7/5/22 17:03 Temp 36.4 Pulse 73 Resp 20 B/P (MAP) 146/89 (108) Pulse Ox 100 O2 Delivery Room Air Blood Pressure Mean: 108 FSBG Bedside Testing Finger Stick Blood Glucose: 270 Blood Glucose Action Taken: DOCTOR NOTIFIED Progress Progress Note : Progress Note GIVEN IV FLUIDS, ZOFRAN AND REGLAN WITH NAUSEA RESOLVED, NO LONGER HAVING DRY HEAVES/RETCHING. STATES SHE IS FEELING MUCH BETTER, PT IS NO LONGER ANXIOUS OR THRASHING ABOUT, AND IS RESTING QUIETLY. PT TOLERATING ICE CHIPS REPEAT ACCUCHECK Departure Impression Primary Impression: Type 1 diabetes mellitus Additional Impressions: Nausea & vomiting Marijuana use Disposition: HOME, SELF-CARE Condition: Improved Departure-Patient Inst. Referrals: SAI FLORES MD (PCP/Family) Primary Care Physician Patient Instructions: Nausea and Vomiting, Adult ED, Sick Day Management for Diabetics Add. Discharge Instructions: HOME, REST CLEAR LIQUIDS--WATER, BROTH,JELLO, GATORADE TOMORROW IF YOU ARE BETTER, ADD BRATS DIET TO CLEAR LIQUIDS--BANANAS, RICE, APPLESAUCE, TOAST, SALTINES CONTINUE YOUR INSULIN PUMP DOSES USUAL FOLLOW UP WITH DR. FLORES IN 1-2 DAYS IF NO BETTER, RETURN TO ER IF WORSE All discharge instructions reviewed with patient and/or family. Voiced understanding. Scripts Metoclopramide HCl (Reglan) 10 Mg Tablet 10 MG PO Q6H for Nausea/Vomiting, #10 TAB Prov: KALINA CORMIER DO 11/16/21 Ondansetron (Ondansetron Odt) 8 Mg Tab.rapdis 8 MG PO Q6H, #10 TAB Prov: KALINA CORMIER DO 11/16/21 KALINA CORMIER DO Nov 16, 2021 18:10
[2021-11-16] MEDS ORDERED: METOCLOPRAMIDE INJ 10 MG/2 ML (REGLAN) IVP ONE (18:15)
[2021-11-16 18:16] LABS: ALBUMIN 4.8 GM/DL (3.2-4.5); CHLORIDE 103 MMOL/L (98-107); POTASSIUM 3.4 MMOL/L (3.6-5.0); SODIUM 138 MMOL/L (135-145)
[2021-11-16 18:17] LABS: CALCIUM 9.6 MG/DL (8.5-10.1)
[2021-11-16 18:18] LABS: GLUCOSE 263 MG/DL (70-105); TOTAL PROTEIN 7.7 GM/DL (6.4-8.2)
[2021-11-16 18:19] LABS: CARBON DIOXIDE 22 MMOL/L (21-32)
[2021-11-16 18:20] LABS: BILIRUBIN,TOTAL 1.4 MG/DL (0.1-1.0)
[2021-11-16 18:22] LABS: ALKALINE PHOSPHATASE 57 U/L (40-136); CREATININE SERUM 0.89 MG/DL (0.60-1.30); GFR ESTIMATED 86
[2021-11-16 18:23] LABS: BUN/CREATININE RATIO 20
[2021-11-16 18:25] LABS: ALANINE AMINOTRANSFERASE 20 U/L (0-55); LIPASE 14 U/L (8-78); LYMPHOCYTES % (MANUAL) 2 %; MAGNESIUM 1.6 MG/DL (1.6-2.4); MONOCYTES % (MANUAL) 10 %; NEUTROPHILS % (MANUAL) 88 %; RBC MORPH NORMAL
[2021-11-16 19:27] LABS: BILIRUBIN,URINE NEGATIVE (NEGATIVE); CLARITY,URINE CLEAR; COLOR,URINE YELLOW; GLUCOSE, URINE (UA) 3+ (NEGATIVE); KETONES,URINE 2+ (NEGATIVE); LEUKOCYTE ESTERASE ,URINE NEGATIVE (NEGATIVE); NITRITE,URINE NEGATIVE (NEGATIVE); PH,URINE 6.5 (5-9); PROTEIN,URINE TRACE (NEGATIVE)
[2021-11-16 19:34] LABS: BACTERIA,URINE NEGATIVE /HPF; RBC,URINE 0-2 /HPF; SQUAMOUS EPITHELIAL CELL,UR 0-2 /HPF
[2021-11-16 19:38] LABS: AMPHETAMINE SCREEN, URINE NEGATIVE (NEGATIVE); BARBITURATE SCREEN URINE NEGATIVE (NEGATIVE); BENZODIAZEPINES SCREEN URINE POSITIVE (NEGATIVE); CANNABINOID SCREEN, URINE POSITIVE (NEGATIVE); COCAINE SCREEN URINE NEGATIVE (NEGATIVE); METHADONE STAT NEGATIVE (NEGATIVE); OPIATE SCREEN URINE NEGATIVE (NEGATIVE); OXYCODONE STAT NEGATIVE (NEGATIVE); PROPOXYPHENE STAT NEGATIVE (NEGATIVE); TRICYCLIC ANTIDEPRESSANTS SCRE NEGATIVE (NEGATIVE)
[2021-11-16] MEDS ORDERED: ONDA8TAB13 PO ×2 (19:47→19:49)
[2021-11-16] MEDS ORDERED: METO-310 PO ×2 (19:47→19:49)
[2021-11-16 19:58] VITALS: BP 105/48
== END 2021-11-16 20:03 | disposition home or self-care (01) ==
LOC: EDUNIT# 16:52 → ER 16:55
DX: E10.10 Type 1 diabetes mellitus with ketoacidosis without coma (principal); R11.2 Nausea with vomiting, unspecified; F12.10 Cannabis abuse, uncomplicated; Z20.822 Contact with and (suspected) exposure to COVID-19
CPT/HCPCS: 36415; 80053; 80306; 81000; 82010; 82150; 82947; 83605; 83690; 83735; 84145; 84703; 85007; 85027; 86141; 87636

== ENCOUNTER 2022-12-29 05:35 | Outpatient (CLI) | payer BC ==
[~2022-12-29] VITALS: Ht 165.1 cm; Wt 75.0 kg
[~2022-12-29 05:35] MED LIST changes: +METO-310 PO
[2022-12-29] MEDS ORDERED: LEVO50CA4 PO (11:07)
[2022-12-29] MEDS ORDERED: FAMO40TA6 PO (11:07)
[2022-12-29] MEDS ORDERED: HYOS-20 PO (11:07)
[2022-12-29] MEDS ORDERED: PANT40TA52 PO (11:07)
[2022-12-29] MEDS ORDERED: CETI10TA17 PO (11:07)
[2022-12-29] MEDS ORDERED: PROM25TA14 PO (11:07)
[2022-12-29] MEDS ORDERED: FLUO40CA PO (11:07)
[2022-12-29] MEDS ORDERED: MULT-141 PO (11:07)
[2022-12-29] MEDS ORDERED: BUSP7.5T5 PO (11:07)
[2022-12-29] MEDS ORDERED: FERR-84 PO (11:07)
== END 2022-12-29 11:12 | disposition home or self-care (01) ==
LOC: PREOP 05:35
PROVIDERS: ATTEND Internal Medicine
DX: Z01.818 Encounter for other preprocedural examination (principal)

== ENCOUNTER 2022-12-30 09:53 | Day surgery (SDC) | payer BC ==
--- NOTE | 2022-12-29 08:18 | HISTORY AND PHYSICAL ---
PANENDOSCOPY HISTORY AND PHYSICAL HISTORY OF PRESENT ILLNESS: The patient is a 37-year-old white female referred by KENNETH Zamarripa from the Dr. Marie's office for panendoscopy. She reports for the past month, she has been having epigastric as well as bilateral lower quadrant abdominal pain and she has been having a lot of increased belching with sulfur type sensation. She has noted some intermittent diarrhea with this and some postprandial bowel urgency. She denies melena or bright red blood per rectum. Reports minimal periods on current IUD based control therapy as I recall, but was noted to be anemic with a hemoglobin in the 11 range and a low MCV around 83. She reports no past history of known peptic ulcer disease. She has not been taking any aspirin or nonsteroidal medication. She denies dysphagia, but does report intermittent heartburn. She is not aware of any family history for GI tract malignancy. PAST MEDICAL HISTORY: Significant for depression, seasonal allergies, Ronak's thyroiditis, for which she is on thyroid replacement. She reports no significant past surgery. FAMILY HISTORY: She is not aware of any family history for GI tract malignancy. SOCIAL HISTORY: She is , with children. No past smoking history. No significant alcohol consumption history. REVIEW OF SYSTEMS: CONSTITUTIONAL: Denies night sweats, chills, fever or change in weight. PULMONARY: Denies cough, wheezing or shortness of breath. GASTROINTESTINAL: As noted in the HPI. CARDIOVASCULAR: Denies chest pain, orthopnea, PND, or pedal edema. PHYSICAL EXAMINATION: GENERAL: Reveals a white female, appeared to be in no acute distress. VITAL SIGNS: Blood pressure 120/70, heart rate 80 and regular, weight 166 pounds. HEENT: Unremarkable. Sclerae nonicteric. CHEST: Clear. CARDIOVASCULAR: Reveals regular rate and rhythm without murmur, S3, or S4. ABDOMEN: Soft, supple. She has epigastric as well as bilateral lower quadrant discomfort to palpation without rebound, guarding, or evidence for abdominal distention, although she does report intermittent bloating. EXTREMITIES: No cyanosis, clubbing or edema. ASSESSMENT: For further investigation of epigastric and bilateral lower quadrant abdominal pain with anemia that appears to be iron deficiency with intermittent diarrhea, the patient is being set up for diagnostic panendoscopy. Prep instructions were given and questions answered. Job ID: [id number] DocumentID: [id number] Dictated Date: 12/28/2022 17:57:07 Court Orderly Date: 12/28/2022 18:21:00 Dictated By: ROSIO PERRY MD
[~2022-12-30] VITALS: Ht 165.1 cm; Wt 75.0 kg
[~2022-12-30 09:53] MED LIST changes: +BUSP7.5T5 PO; +CETI10TA17 PO; +FAMO40TA6 PO; +FERR-84 PO; +FLUO40CA PO; +HYOS-20 PO; +LEVO50CA4 PO; +MULT-141 PO; +PANT40TA52 PO
[2022-12-30] MEDS ORDERED: LACTATED RINGERS 1,000 ML 1,000 ML IV STA (10:14)
[2022-12-30] MEDS ORDERED: HURRICAINE EXT TUBE (BENZOCAINE) XX PRN (10:15)
[2022-12-30 10:19] VITALS: BP 120/76
--- NOTE | 2022-12-30 11:09 | Pre-Op Note & Conscious Sedat ---
Pre-Operative Progress Note Date H&P Reviewed: Dec 30, 2022 Time H&P Reviewed: 11:08 History & Physical: H&P Reviewed, Patient Examed, No changes noted Pre-Op Diagnosis: epigastric and bilateral lower quad abd pain with animia Moderate Sedation PreProcedure ASA Score 2 Airway Lungs Heart ASA score ASA 1: a normal healthy patient ASA 2: a patient with a mild systemic disease (mid diabetes, controlled hypertension, obesity ASA 3: a patient with a severe systemic disease that limits activity (angina, COPD, prior Myocardial infarction) ASA 4: a patient with an incapacitating disease that is a constant threat to life (CHF, renal failure) ASA 5: a moribund patient not expected to survive 24 hrs. (ruptured aneurysm) ASA 6: a declared brain- patient whose organs are being harvested. For emergent operations, add the letter E after the classification Mallampati Classification Grade 1 Sedation Plan Analgesia, Amnesia, Plan communicated to team members, Discussed options with patient/fam, Discussed risks with patient/fam The patient is an appropriate candidate to undergo the planned procedure, sedation, and anesthesia. The patient immediately re-assessed prior to indication. ROSIO PERRY MD Dec 30, 2022 11:09
[2022-12-30 12:30] VITALS: BP 100/57
[2022-12-30 12:35] VITALS: BP 100/57
--- NOTE | 2022-12-30 12:36 | Anesthesia-General Post-Op ---
MAC Patient Condition Mental Status/LOC: Same as Preop Cardiovascular: Satisfactory Nausea/Vomiting: Absent Respiratory: Satisfactory Pain: Controlled Complications: Absent Post Op Complications Complications None Follow Up Care/Instructions Patient Instructions None needed. Anesthesiology Discharge Order Discharge Order Patient is doing well, no complaints, stable vital signs, no apparent adverse anesthesia problems. No complications reported per nursing. CHRIS AGUILAR CRNA Dec 30, 2022 12:36
--- NOTE | 2022-12-30 12:40 | Progress Note-Post Operative ---
Post-Procedure Note Physician (s)/Patternmaker Apprentice Metal (s) Physician ROSIO PERRY MD Pre-Procedure Diagnosis Pre-Procedure Diagnosis: epigastric and bilateral lower quad abd pain with ani veronica Post-Procedure Diagnosis Post-operative diagnosis: The patient was placed in the left lateral decubitus position. The endoscope was inserted into the oral cavity and under direct visualization the esophagus intubated. The endoscope was passed down the esophagus to stomach into the second portion of the duodenum. A careful inspection was made as the endoscope withdrawn. Findings: The posterior pharynx epiglottis arytenoid aperture and true and false vocal folds were unremarkable on visual inspection. The proximal mid and distal esophagus was unremarkable as well. There is no evidence for hiatal hernia formation and no evidence for erosive esophagitis. The cardia and fundus were unremarkable except there is a little bit more than normal amount of fluid without solid material in the stomach. There is minimal amount of antral erythema noted a biopsy was obtained and submitted for histopathology with no evidence for peptic ulceration. The pylorus pyloric channel duodenal bulb and second portion of the duodenum were unremarkable with normal villous appearing architecture. Assessment: Mild antral erythema was present with no bleeding sites being identified and otherwise unremarkable EGD evaluation with normal-appearing villous architecture. We then proceeded with colonoscopy. The patient was placed in the left lateral decubitus position. Prior to undergoing colonoscopy digital rectal evaluation was performed. Anal suture tone was normal and the perianal reflexes intact. No abnormalities noted on digital inspection anal canal or distal rectal vault. The colonoscope was then inserted into the rectum and under direct visualization advanced to the cecum. The cecum was identified by identification of the valve and cecal strap. Photographic documentation was obtained. A careful inspection was made as the colonoscope withdrawn. Quality prep was good. Findings there are no evidence for internal or external hemorrhoids in the rectum sigmoid colon descending colon and splenic flexure unremarkable. Present in the distal transverse colon was a sessile 4 mm polyp was biopsied and ablated with hot forceps with no subsequent blood loss. The remainder the transverse colon hepatic flexure ascending colon and cecum were unremarkable. Assessment: 1 diminutive polyp was removed from the distal transverse colon via hot forceps with no blood loss. This is otherwise unremarkable colonoscopy with no potential bleeding sites being identified on today's panendoscopy. Patient was reassured by today's findings. As long as there is no surprise on histopathology report would advocate consideration for repeat screening colonoscopy in 10 years. CC: Dr. Lorena FLORES MD. ROSIO PERRY MD Dec 30, 2022 12:40
[2022-12-30 12:55] VITALS: BP 100/57
== END 2022-12-30 13:10 | disposition home or self-care (01) ==
LOC: ENDO 09:53
PROVIDERS: ATTEND Internal Medicine
DX: K31.89 Other diseases of stomach and duodenum (principal); D12.3 Benign neoplasm of transverse colon; D50.9 Iron deficiency anemia, unspecified; R10.13 Epigastric pain; R10.32 Left lower quadrant pain; R10.31 Right lower quadrant pain; R19.7 Diarrhea, unspecified
CPT/HCPCS: 84703